=== PATIENT | male | born 1975 | race African-American/Black ===

== ENCOUNTER 2017-06-30 09:44 | Emergency (ER) | payer MEDICAID, OTHER ==
[~2017-06-30] VITALS: Ht 188 cm; Wt 105.0 kg
[~2017-06-30 09:44] MED LIST: AMLO5TAB4 PO
[2017-06-30 11:39] VITALS: BP 111/63
[2017-06-30] MEDS ORDERED: CARBAMIDE PEROXIDE 6.5% OTIC SOLN 15ML LEFT EAR ONE (11:45)
[2017-06-30] MEDS ORDERED: IBUPROFEN 600MG TABLET PO ONE (11:45)
== END 2017-06-30 13:52 | disposition home or self-care (01) ==
LOC: ER 12:00
DX: H61.22 Impacted cerumen, left ear (principal); I10 Essential (primary) hypertension; F17.200 Nicotine dependence, unspecified, uncomplicated; Z88.0 Allergy status to penicillin
CPT/HCPCS: 69209; 99283